=== PATIENT | female | born 1955 | race Caucasian/White ===

== ENCOUNTER → 2021-09-24 | Outpatient (CLI) | payer MEDICARE | LOC: MAMO 09-17 08:00 → EXRD 09-17 11:30 → US 09-17 13:30 → EXRD 09:58 | DX: M81.0 Age-related osteoporosis without current pathological fracture (principal); Z12.31 Encounter for screening mammogram for malignant neoplasm of breast; R59.0 Localized enlarged lymph nodes; R53.83 Other fatigue; M85.852 Other specified disorders of bone density and structure, left thigh; I10 Essential (primary) hypertension | CPT/HCPCS: 76856; 77063; 77067; 77080 ==

== ENCOUNTER → 2021-10-01 | Outpatient (CLI) | payer MEDICARE | LOC: CT 13:33 | DX: Z00.00 Encounter for general adult medical examination without abnormal findings (principal); R19.09 Other intra-abdominal and pelvic swelling, mass and lump | CPT/HCPCS: 36415; 82565; 84520; Q9967 ==